=== PATIENT | male | born 1975 | race Caucasian/White ===

== ENCOUNTER 2018-10-13 15:55 | Inpatient (IN) ==
--- NOTE | 2018-10-13 20:01 | Internal Med History&Physical ---
<Sintia Vanegas M - Last Filed: 10/13/18 23:26> Date of Encounter: 10/13/18 Time of Encounter: 20:01 Internal Medicine - H&P: HPI Admitted From: Emergency Dept ([facility]) History of present illness: Mr. Dee is a 43 year old male with history of hypertension, diabetes who presents the emergency department of [facility] due to shortness of breath for the last 3 days. Patient states for the last 3 days he has had significant coughing, increasing shortness of breath and one episode of post tussive emesis 2 days prior. He notes he has had fever and chills at home. He does note intermittent chest pain only when coughing. Otherwise notes right-sided eye d rainage, worse in the last couple days but this is a chronic issue as he has had sinus surgery. He has had no sick contacts. He denies any nausea, recurrent vomiting, total pain, diarrhea, rash, headache or palpitations. He has not been hospitalized recently or on antibiotics. He states he does have sleep apnea which he does not use a CPAP at night. He also has a history of diabetes and was previously on metformin but has not had insurance coverage and therefore has not been on it for several years. he otherwise does admit to intermittently smoking methamphetamine, last use two days ago but denies any IV drug use or other illicit drugs. He is a daily smoker. In the [facility] emergency department the patient was found to have no significant leukocytosis, mild proliferative gimenez, elevated d-dimer of 641, hypercapnia on ABG, otherwise electrolytes were stable though his troponin was elevated at 0.04 and 0.06. Chest x-ray was obtained which showed no acute process. Due to elevated d-dimer patient did get CT angio chest which was not diagnostic for pulmonary embolism but did show multifocal consolidation in the upper lobes, right middle lobe and right lower lobe consistent with atypical pneumonia. He was given 3 duo nebs, 125 mg methylprednisolone, 1 g Rocephin, 500 of Zithromax, and 2 mg IV Ativan. He was able to tolerate BiPAP in the emergency room. Past Med Surg Social Fam HX - Past Medical History Medical history: COPD, diabetes, hypertension Additional medical history: sleep apnea Psychiatric history: no psych history - Past Surgical History Additional surgical history: partial tongue removal - Social History Smoking Status: Current every day smoker Smokeless Tobacco Status: No Alcohol use: none Drug use: methamphetamine Internal Medicine - H&P: Meds No Known Home Drugs 10/13/18 [History] Allergy/AdvReac Type Severity Reaction Status Date / Time No Known Allergies Allergy Verified 10/13/18 08:09 All Systems PM: A 10-system review of systems was performed and is negative for pertinent findings except as documented above in the HPI. - Constitutional Constitutional: as per HPI, chills, fever(s) - EENT Eyes: discharge, no change in vision - Cardiovascular Cardiovascular ROS IM: chest pain (intermittent, sharp on coughing), dyspnea, dyspnea on exertion, no palpitations - Respiratory Respiratory: as per HPI, dyspnea, dyspnea on exertion, wheezing - Gastrointestinal Gastrointestinal: no abdominal pain, no diarrhea, no nausea, no vomiting - Genitourinary Genitourinary ROS male: no difficulty urinating, no dysuria - Musculoskeletal Musculoskeletal ROS IM: no arthralgias, no myalgias - Integumentary Integumentary IM: no rash - Neurological Neurological ROS: no numbness, no tingling - Endocrine Endocrine IM: no polyphagia, no polyuria - Constitutional Vitals: Temp Pulse Resp BP Pulse Ox 98.5 F 97 23 143/85 97 10/13/18 19:32 10/13/18 19:32 10/13/18 19:32 10/13/18 19:32 10/13/18 19:32 Exam: General: Patient appears his stated age, seated upright and agreeable to lay back due to shortness of breath. He is on oxymask with adequate saturations, mild tachypnea but no conversational dyspnea. Neck: No JVD. Trachea midline. Neck supple. Eyes: PERRL. No scleral icterus. HENT: Normocephalic and atraumatic. Moist mucus membranes. Cardiovascular: Regular rate and rhythm. Normal S1 and S2. No murmurs appreciated. Normal capillary refill. Extremities well perfused with 2+ distal pulses bilaterally. No edema. Pulmonary: Coarse breath sounds in bilateral upper and lower land, end respiratory wheezing. Mild tachypnea. Speaks in full sentences. Abdomen: Soft, nondistended, and tontender. No bruits or masses. No guarding. Neuro: Alert and oriented x3. No slurred speech. No focal deficits noted. Skin: No rashes noted on visualized skin. Musculoskeletal: No bony abnormalities visualized. Moves all extremities. Psych: Normal mood. Pleasant. Makes appropriate eye contact. - Assessment and Plan (1) Acute respiratory failure with hypoxia and hypercapnia Current Visit: Yes Status: Acute Assessment and plan: * Unclear etiology at this point but most likely source infectious versus chemical pneumonitis from recent methamphetamine use * Does have some element of upper respiratory stridor, therefore given racemic epi with significant improvement * Will continue with BiPAP overnight and recheck ABG as his respiratory acidosis and hypercarbia worsened in the interim from [facility] ED when he was on BiPAP * We will repeat ABG after resuming BiPAP * Will monitor closely for signs of acute decompensation to avoid intubation Code(s): J96.01 - Acute respiratory failure with hypoxia; J96.02 - Acute respiratory failure with hypercapnia (2) Bilateral pneumonia Current Visit: Yes Status: Acute Assessment and plan: * Patient is initiated on Rocephin and Zithromax in the emergency room, will continue coverage for community-acquired pneumonia with Levaquin 750mg IV * Lactate was not elevated * Blood cultures drawn a [facility] and pending, will send for sputum culture if adequate specimen given * Negative influenza * On my exam the patient is on 3 L oxygen mask, will place the patient on CPAP overnight for ANDREI and respiratory support * We will repeat duonebs here, scheduled every 4h with alternating albuterol every 4 * Patient given 125 mg methylprednisolone in the emergency department, repeat dose given here and will continue on prednisone 60mg daily Qualifiers: Pneumonia type: due to unspecified organism Lung location: upper lobe of lung Qualified Code(s): J18.1 - Lobar pneumonia, unspecified organism Code(s): J18.9 - Pneumonia, unspecified organism (3) ANDREI (obstructive sleep apnea) Current Visit: Yes Status: Acute Assessment and plan: * Previously does, not utilizing CPAP at home * We will put the patient on CPAP here (4) Elevated troponin Current Visit: Yes Status: Acute Assessment and plan: * Initial troponin 0.04, elevated to 0.06, will repeat * At this point patient has no complaints of chest pain Code(s): R74.8 - Abnormal levels of other serum enzymes (5) Diabetes mellitus Current Visit: Yes Status: Acute Assessment and plan: * Per history appears previously on metformin * On BMP had blood glucose 171, no anion gap or concern for DKA at this time * SS insulin, will keep NPO at this time until respiratory status improves Qualifiers: Diabetes mellitus type: type 2 Diabetes mellitus shelter insulin use: without terminal gauger use Diabetes mellitus complication status: without complication Qualified Code(s): E11.9 - Type 2 diabetes mellitus without complications (6) Methamphetamine abuse Current Visit: Yes Status: Acute Assessment and plan: * Patient denied daily user or has any history of IV drug abuse, at this point no clinical stigmata of endocarditis * Given stridor concern for upper airway reaction from inhaled methamphetamine abuse with combination pneumonia, significant improvement with racemic epinephrine Code(s): F15.10 - Other stimulant abuse, uncomplicated (7) DVT prophylaxis Current Visit: Yes Status: Acute Assessment and plan: * Heparin subcutaneous every 12 - Time Spent With Patient Total time spent is greater than 50% in coordination of care (as documented) at patient's floor/unit and/or counseling patient: <Rogelio Sanchez - Last Filed: 10/13/18 23:57> Date of Encounter: 10/13/18 Time of Encounter: 20:55 - Constitutional Constitutional: chills, fever(s), no night sweats - EENT Nose, mouth and throat: no nasal congestion, no sinus pressure, no sore throat - Cardiovascular Cardiovascular ROS IM: chest pain, dyspnea, dyspnea on exertion - Respiratory Respiratory: cough, dyspnea, chest congestion, pain with cough - Gastrointestinal Gastrointestinal: no abdominal pain, no diarrhea, no vomiting - Genitourinary Genitourinary ROS male: no dysuria, no flank pain, no hematuria - Musculoskeletal Musculoskeletal ROS IM: no arthralgias, no back pain - Integumentary Integumentary IM: no rash, no jaundice - Neurological Neurological ROS: no dizziness, no focal weakness, no frequent falls, no headache(s) - Psychiatric Psychiatric: no anxiety, no depression - Endocrine Endocrine IM: no polydipsia, no polyphagia, no polyuria - Allergic/Immunologic Allergic/Immunologic: wheezing, no tongue swelling, no throat swelling, no GI upset with certain foods - Constitutional Vitals: Temp Pulse Resp BP Pulse Ox 98.5 F 97 22 143/85 100 10/13/18 19:32 10/13/18 19:32 10/13/18 21:25 10/13/18 19:32 10/13/18 21:25 General appearance: Present: cooperative, mild distress, A&O X 3, pleasant, answers questions appropriately Exam: mild to moderate respiratory distress - Head Head exam: Present: atraumatic, normal inspection - Eye Eye exam: Present: EOMI, PERRL. Absent: scleral icterus Pupils: Present: normal accommodation - ENT ENT exam: Present: mucous membranes dry, normal exam, normal oropharynx - Neck Neck exam general surgery: Present: full ROM, supple, trachea midline. Absent: lymphadenopathy, tenderness, nuchal rigidity, thyromegaly - Respiratory Respiratory exam: Present: accessory muscle use, prolonged expiratory phase, respiratory distress, rhonchi, stridor (much improved after racemic epinephrine neb), wheezes, tachypnea. Absent: chest wall tenderness, CTAB - Cardiovascular Cardiovascular exam: Present: distant heart sounds, RRR, +S1, +S2. Absent: diastolic murmur, systolic murmur - GI/Abdominal GI/Abdominal exam: Present: normal bowel sounds, soft. Absent: guarding, hepatomegaly, mass, rebound, splenomegaly, tenderness - Extremities Exam Extremities exam: Present: full ROM, warm, radial pulses palpable and symmetrical. Absent: calf tenderness, pedal edema, tenderness - Back Exam Back exam: Absent: CVA tenderness (L), CVA tenderness (R) - Neurological Exam Neurological exam: Present: alert, CN II-XII intact, oriented X3, no focal deficits, strengths equal and symetr throughout - Psychiatric Psychiatric exam: Present: normal affect, normal mood - Skin Skin exam: Present: dry, intact, warm. Absent: petechiae, rash Internal Med - H&P Results - Labs Labs: Cardiac Enzymes 10/13/18 Range/Units 21:23 Troponin I 0.03 (< 0.04) ng/mL - ABG Interpretation Interpretation: ABG interpreted by me ABG results: 10/13/18 21:19 ABG pH 7.29 L ABG pCO2 65 H ABG pO2 83 L ABG HCO3 31 H ABG Total CO2 33 H ABG O2 Saturation 94 L ABG Base Excess 2 Interpretation: respiratory acidosis - EKG Data -: EKG Interpreted by Myself - EKG Data Prior EKG available for review: no EKG comments: 10/13/18 23:43 SInus tachycardia; PVC's - Diagnostic Studies CT scan - chest Status: image reviewed by me (multi-focal airspace disease; indeterminate for PE) - Time Spent With Patient Total time spent is greater than 50% in coordination of care (as documented) at patient's floor/unit and/or counseling patient: - Attending Attestation I discussed the patient PALA, past medical history, review of systems, imaging data, lab data, and exam findings with Dr. Vanegas. I then saw and examined patient independently as well. Upon my assessment of the patient, he was in moderate respiratory distress, stridorous, and exhibited some increased work of breathing. He was alert and oriented but working hard to breathe. He had significant stridor on auscultation of his neck. I ordered stat racemic epinephrine aerosol, stat ABG, and then I reassessed him shortly thereafter. His stridor improved dramatically after the epinephrine aerosol. He confirmed worsening of his respiratory acidosis. I asked him about any illicit drug use or abuse, and he denied. However, per Dr. Vanegas, he confirmed to her that he did use methamphetamine recently. I viewed his CT imaging findings and note that he does have some atypical nodular airspace disease. This could be infectious, could be inhalant injury from methamphetamine abuse, and/or inflammatory. As such, we will keep him on steroids, aerosols, oxygen, and antibiotics. His CTA was indeterminate for PE. We will keep him on heparin drip and repeat his CTA in 24 hours to rule out PE. Meanwhile, we will trend troponins and EKGs. We will also order an echo for the morning. Other than my comments above and documented exam findings, I agree with Dr. Vanegas's assessment and plan.
[2018-10-13] MEDS ORDERED: Acetaminophen 325 MG TABLET PO PRN (20:32)
[2018-10-13] MEDS ORDERED: Naloxone 0.4 MG/ML INJ IVP PRN (20:32)
[2018-10-13] MEDS ORDERED: Ondansetron ODT 4 MG TAB.RAPDIS SL PRN (20:32)
[2018-10-13] MEDS ORDERED: *HR* LORazepam 2 MG/ML VIAL IVP PRN (20:42)
[2018-10-13] MEDS ORDERED: Dextrose Gel 15 GM/37.5 ML TUBE PO PRN ×2 (20:46)
[2018-10-13] MEDS ORDERED: D5% in Water 1,000 ML IVC PRN (20:46)
[2018-10-13] MEDS ORDERED: *HR* Dextrose 50 % in Water (Syg) 50 ML SYRINGE IVP PRN (20:46)
[2018-10-13] MEDS ORDERED: Insulin LISPRO 300 UNITS/3 ML VIAL SQ SCH (21:00)
[2018-10-13] MEDS ORDERED: methylPREDNISolone 125 MG/2 ML VIAL IVP ONE (21:01)
[2018-10-13] MEDS ORDERED: Racepinephrine Neb 0.5 ML VIAL IH ONE (21:01)
[2018-10-13] MEDS ORDERED: Ipratropium/Albuterol Neb 3 ML IH ONE (21:12)
[2018-10-13] MEDS ORDERED: Ipratropium/Albuterol Neb 3 ML ONE (21:21)
[2018-10-13 21:25] LABS: ABG Base Excess 2 mEq/L (-2 to 3); ABG HCO3 31 mEq/L (21-27); ABG Oxygen Saturation 94 % (95-98); ABG PCO2 65 mmHg (35-45); ABG PH 7.29 pH Units (7.32-7.45); ABG PO2 83 mmHg (85-104); ABG TCO2 33 mEq/L (20-26)
[2018-10-13] MEDS: Ipratropium/Albuterol Neb 3 ML IH SCH (21:29)
[2018-10-13] MEDS ORDERED: Levalbuterol Neb 1.25 MG/3 ML IH PRN (22:24)
[2018-10-13] MEDS ORDERED: Racepinephrine Neb 0.5 ML VIAL IH PRN (23:36)
[2018-10-13] MEDS ORDERED: *HR* Heparin 5,000 UNIT/ML VIAL IVP PRN (23:47)
[2018-10-13] MEDS ORDERED: *HR* Heparin 5,000 UNIT/ML VIAL IVP ONE (23:47)
[2018-10-14] MEDS ORDERED: Racepinephrine Neb 0.5 ML VIAL IH SCH
[2018-10-14] MEDS: Ipratropium/Albuterol Neb 3 ML IH SCH ×7 (00:32→23:51)
[2018-10-14 00:46] LABS: ABG Base Excess 2 mEq/L (-2 to 3); ABG HCO3 29 mEq/L (21-27); ABG Oxygen Saturation 98 % (95-98); ABG PCO2 54 mmHg (35-45); ABG PH 7.34 pH Units (7.32-7.45); ABG PO2 118 mmHg (85-104); ABG TCO2 31 mEq/L (20-26); Blood Gas PEEP 6 cm H2O; Blood Gas Respiration Rate 8
[2018-10-14 01:42] LABS: Hematocrit 46.5 % (37.5-50.1); Hemoglobin 14.9 g/dL (12.9-16.9); Mean Corpuscular Hemoglobin 28.3 pg (28.0-33.3); Mean Corpuscular Volume 88.4 fL (83.0-100.0); Mean Platelet Volume 10.9 fL (9.4-12.4); Platelet Count 123 K/mcL (140-400); Red Blood Count 5.26 M/mcL (4.19-5.50); Red Cell Distribution Width 13.4 % (11.5-14.5)
[2018-10-14 01:59] LABS: BUN/Creatinine Ratio 19 (6-26); Blood Urea Nitrogen 14 mg/dL (6-20); Calcium 8.9 mg/dL (8.6-10.3); Carbon Dioxide 27 mEq/L (23-29); Chloride 103 mEq/L (98-107); Glucose 293 mg/dL (70-105); Osmolality,Calculated 297 (280-300); Potassium 4.1 mEq/L (3.5-5.1); Sodium 138 mEq/L (136-145); eGFR For Non-African Americans > 60 (> 60)
[2018-10-14 02:00] LABS: INR 1.1; Prothrombin Time 12.2 Seconds (9.4-12.1)
[2018-10-14] MEDS: Heparin 25,000 UNIT/250 ML D5W 25,000 UNIT/250 ML IV.SOLN IVC SCH ×3 (02:06→23:44)
[2018-10-14] MEDS: 0.9 % Sodium Chloride 1,000 ML IVC SCH ×3 (02:15→22:41)
[2018-10-14] MEDS: Insulin LISPRO 300 UNITS/3 ML VIAL SQ SCH ×5 (05:53→23:44)
[2018-10-14] MEDS ORDERED: *HR* Heparin 5,000 UNIT/ML VIAL SQ SCH (06:00)
[2018-10-14] MEDS ORDERED: Insulin LISPRO 300 UNITS/3 ML VIAL SQ SCH (07:30)
[2018-10-14] MEDS: Levofloxacin 750 MG/150 ML 750 MG/150 ML BAG IVPB SCH (09:14)
[2018-10-14] MEDS: predniSONE 20 MG TABLET PO SCH (09:15)
--- NOTE | 2018-10-14 10:47 | Internal Med Progress Note ---
Hospitalist Progress Note - Encounter Date of Encounter: 10/14/18 Time of Encounter: 10:47 - Subjective Interval History: Patient seen and examined this morning at bedside. No acute overnight events. Breathing significantly improved. Denies any chest pain. Has some raspy voice after he had coughing for a couple days. Uses methamphetamine every few days. Denies any IV drug use. - Exam Vitals: Temp Pulse Resp BP Pulse Ox 97.4 F L 76 19 126/76 100 10/14/18 07:36 10/14/18 07:36 10/14/18 07:36 10/14/18 07:36 10/14/18 07:36 Exam: General: In mild respiratory distress. Respiratory exam: mild accessory muscle use. Diffuse wheezing b/l Cardiovascular exam: tachycardic, +S1, +S2. no murmur, gallop, rubs. GI/Abdominal exam: obese, Non-tender, Non-distended, normal bowel sounds, soft, no peritoneal signs. Extremities exam: no pedal edema, pulses palpable in b/l lower extremities. no calf tenderness Neurological exam: CN II-XII intact, AO X3, no focal deficits. Skin exam: No skin rash - Summary of Assessment and Plan Summary of Assessment and Plan: Acute respiratory failure with hypoxia and hypercapnia - CTA was non diagnostic for PE but showed multifocal conolidation in RML, UL and RLL. - Patient is also a smoker and has COPD - ABG improved. c/w BIPAP, duonebs, steroid and levaquin. - chemical pneumonitis possible from recent methamphetamine use. Had stridor and was given racemic epi with significant improvement - lactate negative. f/u Blood cultures and sputum culture - send RIP. ANDREI - c/w BiPAP at night - Was not using CPAP at home Elevated troponin - Initial troponin 0.04, elevated to 0.06, repeats being negative - started on heparin drip - EKG with Lt atrial enlargement, PVC and sinus tachycardia. Denies chest pain at any point. - c/w heparin drip and f/u ECHO. May repeat CTA tomorrow. Diabetes mellitus -c/w SS insulin and accuchecks methamphetamine and nitcotine abuse - discussed cessation and risk of continued use - f/u ECHO for possible signs of endocarditis. No signs clinically of endocarditis. - nicotine patch DVT prophylaxis - Heparin subcutaneous - Time Spent with Patient Total time spent is greater than 50% in coordination of care (as documented) at patient's floor/unit and/or counseling patient: Internal Medicine: Result - Labs CBC & Chem 7: 10/14/18 01:13 10/14/18 01:13 Labs: Short CBC 10/14/18 Range/Units 01:13 WBC 5.3 (4.3-11.1) K/mcL Hgb 14.9 (12.9-16.9) g/dL Hct 46.5 (37.5-50.1) % Plt Count 123 L (140-400) K/mcL BMP 10/14/18 01:13 Sodium 138 Potassium 4.1 Chloride 103 Carbon Dioxide 27 BUN 14 Creatinine 0.72 Glucose 293 H Calcium 8.9 Cardiac Enzymes 10/13/18 10/14/18 10/14/18 Range/Units 21:23 01:13 05:57 Troponin I 0.03 0.03 0.03 (< 0.04) ng/mL - ABG Interpretation ABG results: ABG ABG pH 7.34 pH Units (7.32-7.45) 10/14/18 00:36 ABG pCO2 54 mmHg (35-45) H 10/14/18 00:36 ABG pO2 118 mmHg (85-104) H 10/14/18 00:36 ABG O2 Saturation 98 % (95-98) 10/14/18 00:36 PT/INR, D-dimer PT 12.2 Seconds (9.4-12.1) H 10/14/18 01:13 Consult Discharge Plan - Plan Referrals: NONE,PCP [Primary Care Provider] -
[2018-10-14] MEDS: Nicotine 14 MG PATCH.TD24 TD SCH (12:03)
[2018-10-14 13:35] LABS: Estimated Average Glucose 157 mg/dl; Hemoglobin A1C 7.1 %
[2018-10-14 14:40] LABS: Adenovirus DETECTED (Not Detect); Bordetella Pertussis Not Detected (Not Detect); Chlamydophila pneumoniae Not Detected (Not Detect); Coronavirus 229E Not Detected (Not Detect); Coronavirus HKU1 Not Detected (Not Detect); Coronavirus NL63 Not Detected (Not Detect); Coronavirus OC43 Not Detected (Not Detect); Human Metapneumovirus Not Detected (Not Detect); Human Rhinovirus/Enterovirus Not Detected (Not Detect); Influenza A Subtype 2009 H1 Not Detected (Not Detect); Influenza A Untypeable Not Detected (Not Detect); Influenza B Not Detected (Not Detect); Mycoplasma pneumoniae Not Detected (Not Detect); Parainfluenza Virus 1 Not Detected (Not Detect); Parainfluenza Virus 2 Not Detected (Not Detect); Parainfluenza Virus 3 Not Detected (Not Detect); Parainfluenza Virus 4 Not Detected (Not Detect); Respiratory Syncytial Virus Not Detected (Not Detect)
[2018-10-14] MEDS: *HR* LORazepam 2 MG/ML VIAL IVP PRN (23:44)
[2018-10-15] MEDS: Ipratropium/Albuterol Neb 3 ML IH SCH ×6 (00:19→20:44)
[2018-10-15 04:33] LABS: Hematocrit 43.5 % (37.5-50.1); Hemoglobin 13.9 g/dL (12.9-16.9); Mean Corpuscular Hemoglobin 28.7 pg (28.0-33.3); Mean Corpuscular Volume 89.7 fL (83.0-100.0); Mean Platelet Volume 11.1 fL (9.4-12.4); Platelet Count 127 K/mcL (140-400); Red Blood Count 4.85 M/mcL (4.19-5.50); Red Cell Distribution Width 13.6 % (11.5-14.5)
[2018-10-15 04:50] LABS: BUN/Creatinine Ratio 30 (6-26); Blood Urea Nitrogen 22 mg/dL (6-20); Calcium 8.8 mg/dL (8.6-10.3); Carbon Dioxide 27 mEq/L (23-29); Chloride 106 mEq/L (98-107); Glucose 252 mg/dL (70-105); Osmolality,Calculated 304 (280-300); Potassium 3.8 mEq/L (3.5-5.1); Sodium 141 mEq/L (136-145); eGFR For Non-African Americans > 60 (> 60)
[2018-10-15 05:09] LABS: Platelet Estimate Normal (Normal)
[2018-10-15 05:23] LABS: Lymphocytes # 1.6 K/mcL (0.6-4.6)
[2018-10-15] MEDS: 0.9 % Sodium Chloride 1,000 ML IVC SCH ×2 (06:19→17:11)
[2018-10-15] MEDS: Insulin LISPRO 300 UNITS/3 ML VIAL SQ SCH ×3 (06:36→17:13)
[2018-10-15] MEDS: predniSONE 20 MG TABLET PO SCH (08:32)
[2018-10-15] MEDS: Nicotine 14 MG PATCH.TD24 TD SCH (08:32)
[2018-10-15] MEDS: *HR* LORazepam 2 MG/ML VIAL IVP PRN ×2 (08:38→20:51)
[2018-10-15] MEDS: Levofloxacin 750 MG/150 ML 750 MG/150 ML BAG IVPB SCH (10:32)
--- NOTE | 2018-10-15 10:46 | Internal Med Progress Note ---
Hospitalist Progress Note - Encounter Date of Encounter: 10/15/18 Time of Encounter: 10:46 - Subjective Interval History: Patient seen and examined this morning at bedside. Patient needed on BiPAP overnight due to significant shortness of breath. Stable on BiPAP this morning with mild respiratory distress. Denies any chest pain. Remains afebrile. - Exam Vitals: Temp Pulse Resp BP Pulse Ox 98 F 74 24 138/85 98 10/15/18 03:46 10/15/18 05:00 10/15/18 08:46 10/15/18 05:00 10/15/18 08:46 Exam: General: In mild respiratory distress. On bipapa Respiratory exam: mild accessory muscle use. Diffuse wheezing b/l Cardiovascular exam: RRR, +S1, +S2. no murmur, gallop, rubs. GI/Abdominal exam: obese, Non-tender, Non-distended, normal bowel sounds, soft, no peritoneal signs. Extremities exam: no pedal edema, pulses palpable in b/l lower extremities. no calf tenderness Neurological exam: CN II-XII intact, AO X3, no focal deficits. Skin exam: No skin rash - Summary of Assessment and Plan Summary of Assessment and Plan: Acute respiratory failure with hypoxia and hypercapnia - CTA was non diagnostic for PE but showed multifocal conolidation in RML, UL and RLL. - Patient is also a smoker and has COPD - ABG improved yesterday however had to put back on BIPAP due to shortness of breath. c/w duonebs, steroid and levaquin. - chemical pneumonitis also possible from recent methamphetamine use. RIP positive for adenovirus. - lactate negative. f/u Blood cultures and sputum culture possible MRSA bacteremia - 1/2 culture positve for GPC with MecA gene - started on vancomycin. could be contaminant. f/u MRSA screen, repeat Blood cultures. Will obtain ID consult tomorrow COPD exacerbation - likely exacerbation from adenovirus - start IV steroids, c/w breathing treatments, levaquin ANDREI - c/w BiPAP at night - Was not using CPAP at home Elevated troponin - Initial troponin 0.04, elevated to 0.06, repeats being negative - started on heparin drip - EKG with Lt atrial enlargement, PVC and sinus tachycardia. Denies chest pain at any point. - c/w heparin drip and f/u ECHO. Repeat CTA when able to lye flat. Diabetes mellitus -c/w SS insulin and accuchecks methamphetamine and nitcotine abuse - discussed cessation and risk of continued use. Denies any IVDU - f/u ECHO for possible signs of endocarditis. No signs of endocarditis, however 1/2 Blood culture positive for likely MRSA - nicotine patch. DVT prophylaxis - Heparin subcutaneous - Time Spent with Patient Total time spent is greater than 50% in coordination of care (as documented) at patient's floor/unit and/or counseling patient: Internal Medicine: Result - Labs CBC & Chem 7: 10/15/18 03:40 10/15/18 03:40 Labs: Short CBC 10/15/18 Range/Units 03:40 WBC 6.6 (4.3-11.1) K/mcL Hgb 13.9 (12.9-16.9) g/dL Hct 43.5 (37.5-50.1) % Plt Count 127 L (140-400) K/mcL Neutrophils # 4.0 (1.6-8.9) K/mcL BMP 10/15/18 03:40 Sodium 141 Potassium 3.8 Chloride 106 Carbon Dioxide 27 BUN 22 H Creatinine 0.73 Glucose 252 H Calcium 8.8 - ABG Interpretation ABG results: ABG ABG pH 7.34 pH Units (7.32-7.45) 10/14/18 00:36 ABG pCO2 54 mmHg (35-45) H 10/14/18 00:36 ABG pO2 118 mmHg (85-104) H 10/14/18 00:36 ABG O2 Saturation 98 % (95-98) 10/14/18 00:36 PT/INR, D-dimer PT 12.2 Seconds (9.4-12.1) H 10/14/18 01:13 Consult Discharge Plan - Plan Referrals: NONE,PCP [Primary Care Provider] -
[2018-10-15] MEDS: Heparin 25,000 UNIT/250 ML D5W 25,000 UNIT/250 ML IV.SOLN IVC SCH (11:19)
[2018-10-15] MEDS: methylPREDNISolone 125 MG/2 ML VIAL IVP SCH ×2 (16:54→23:16)
[2018-10-15] MEDS: *HR* Heparin 5,000 UNIT/ML VIAL IVP PRN (23:16)
[2018-10-16] MEDS: Ipratropium/Albuterol Neb 3 ML IH SCH ×7 (00:10→23:24)
[2018-10-16] MEDS: Insulin LISPRO 300 UNITS/3 ML VIAL SQ SCH ×5 (00:15→20:51)
[2018-10-16] MEDS: Heparin 25,000 UNIT/250 ML D5W 25,000 UNIT/250 ML IV.SOLN IVC SCH (03:19)
[2018-10-16] MEDS: 0.9 % Sodium Chloride 1,000 ML IVC SCH ×3 (03:20→23:25)
[2018-10-16 05:24] LABS: Hematocrit 42.7 % (37.5-50.1); Hemoglobin 13.7 g/dL (12.9-16.9); Mean Corpuscular HGB Conc 32.1 g/dL (31.6-35.5); Mean Corpuscular Hemoglobin 28.7 pg (28.0-33.3); Mean Corpuscular Volume 89.5 fL (83.0-100.0); Mean Platelet Volume 10.4 fL (9.4-12.4); Monocytes # 0.2 K/mcL (0.0-1.3); Platelet Count 117 K/mcL (140-400); Red Blood Count 4.77 M/mcL (4.19-5.50); Red Cell Distribution Width 13.4 % (11.5-14.5)
[2018-10-16 05:38] LABS: BUN/Creatinine Ratio 25 (6-26); Blood Urea Nitrogen 17 mg/dL (6-20); Calcium 8.8 mg/dL (8.6-10.3); Carbon Dioxide 29 mEq/L (23-29); Chloride 106 mEq/L (98-107); Glucose 297 mg/dL (70-105); Osmolality,Calculated 305 (280-300); Potassium 4.3 mEq/L (3.5-5.1); Sodium 141 mEq/L (136-145); eGFR For Non-African Americans > 60 (> 60)
[2018-10-16 05:54] LABS: Platelet Estimate Slight Decrease (Normal)
[2018-10-16 05:57] LABS: Lymphocytes # 0.5 K/mcL (0.6-4.6); Neutrophils # 2.3 K/mcL (1.6-8.9)
--- NOTE | 2018-10-16 08:13 | Internal Med Progress Note ---
Hospitalist Progress Note - Encounter Date of Encounter: 10/16/18 Time of Encounter: 08:13 - Subjective Interval History: Patient seen and examined this morning at bedside. No acute events. Breathing improved. Off BiPAP this morning. Appears slightly tachypneic but much better than yesterday. Afebrile. No diarrhea or urinary difficulties. - Exam Vitals: Temp Pulse Resp BP Pulse Ox 97.4 F L 98 22 157/105 92 10/16/18 08:06 10/16/18 08:06 10/16/18 08:06 10/16/18 08:06 10/16/18 08:06 Exam: General: In mild respiratory distress. On NC Respiratory exam: mild accessory muscle use. Diffuse wheezing b/l Cardiovascular exam: RRR, +S1, +S2. no murmur, gallop, rubs. GI/Abdominal exam: obese, Non-tender, Non-distended, no peritoneal signs. Extremities exam: no pedal edema, pulses palpable in b/l lower extremities. no calf tenderness Neurological exam: CN II-XII intact, AO X3, no focal deficits. Skin exam: No skin rash - Summary of Assessment and Plan Summary of Assessment and Plan: Acute respiratory failure with hypoxia and hypercapnia - CTA was non diagnostic for PE but showed multifocal conolidation in RML, UL and RLL. - RIP positive for adenovirus. - Patient is also a smoker and has COPD - c/w duonebs, steroid and levaquin. - chemical pneumonitis also possible from recent methamphetamine use. - lactate negative. Positive blood culture - 1/2 culture positive for staph hominis. Likely can dc vancomycin. MRSA screen negative after 1 day of antibiotic. ID recommendation appreciated COPD exacerbation - likely exacerbation from adenovirus - start IV steroids, c/w breathing treatments, levaquin SIRS - has 3 criteria. but does not appear septic. ANDREI - c/w BiPAP at night - Was not using CPAP at home Elevated troponin - Initial troponin 0.04, elevated to 0.06, repeats being negative - was on heparin drip - EKG with Lt atrial enlargement, PVC and sinus tachycardia. Denies chest pain at any point. - c/w heparin drip and f/u ECHO. Repeat CTA. Will stop heparin if negative Diabetes mellitus -c/w SS insulin and accuchecks methamphetamine and nitcotine abuse - discussed cessation and risk of continued use. Denies any IVDU - f/u ECHO for possible signs of endocarditis. - nicotine patch. DVT prophylaxis - Heparin subcutaneous - Time Spent with Patient Total time spent is greater than 50% in coordination of care (as documented) at patient's floor/unit and/or counseling patient: Internal Medicine: Result - Labs CBC & Chem 7: 10/16/18 05:03 10/16/18 05:03 Labs: Short CBC 10/16/18 Range/Units 05:03 WBC 3.0 L D (4.3-11.1) K/mcL Hgb 13.7 (12.9-16.9) g/dL Hct 42.7 (37.5-50.1) % Plt Count 117 L (140-400) K/mcL Neutrophils # 2.3 (1.6-8.9) K/mcL BMP 10/16/18 05:03 Sodium 141 Potassium 4.3 Chloride 106 Carbon Dioxide 29 BUN 17 Creatinine 0.67 L Glucose 297 H Calcium 8.8 - ABG Interpretation ABG results: ABG ABG pH 7.34 pH Units (7.32-7.45) 10/14/18 00:36 ABG pCO2 54 mmHg (35-45) H 10/14/18 00:36 ABG pO2 118 mmHg (85-104) H 10/14/18 00:36 ABG O2 Saturation 98 % (95-98) 10/14/18 00:36 PT/INR, D-dimer PT 12.2 Seconds (9.4-12.1) H 10/14/18 01:13 Consult Discharge Plan - Plan Referrals: Liza Solis CNP [Advanced Practice Nurse] - 10/25/18 1:30 pm (Please take the new patient packet with you to your doctors office filled out/If you do not receive this packet in the mail please arrive 30 minutes early to fill out paper work. If your receive this packet in the mail show up 15 minutes early to your appointment. Please take with you to your appointment Picture ID, Insurance Cards, list of all medications including over the counter meds. This office does not give out controlled medication. If you are not able to make this follow up appointment please call [phone] 24 hours prior to your appointment.)
[2018-10-16] MEDS: Levofloxacin 750 MG/150 ML 750 MG/150 ML BAG IVPB SCH (08:23)
[2018-10-16] MEDS: methylPREDNISolone 125 MG/2 ML VIAL IVP SCH ×3 (08:24→23:26)
[2018-10-16] MEDS: Nicotine 14 MG PATCH.TD24 TD SCH (08:25)
[2018-10-16] MEDS ORDERED: Aminoglycoside Consult 1 EACH MC ONE (11:09)
[2018-10-16] MEDS: *HR* Heparin 5,000 UNIT/ML VIAL IVP PRN (11:52)
[2018-10-16] MEDS ORDERED: Isovue-370 500 ML BOTTLE IVP ONE (12:07)
[2018-10-16] MEDS: Nicotine 21 MG PATCH.TD24 TD SCH (15:21)
[2018-10-16] MEDS ORDERED: *HR* Labetalol 20 MG/4 ML SYRINGE IVP ONE (18:16)
[2018-10-16] MEDS ORDERED: Perflutren Lipid Microsphere 1.3 ML in 0.9 % Sodium Chloride 8.7 ML IVP ONE (20:42)
[2018-10-16] MEDS: *HR* Heparin 5,000 UNIT/ML VIAL SQ SCH (20:50)
[2018-10-17] MEDS: Ipratropium/Albuterol Neb 3 ML IH SCH ×6 (04:55→23:45)
[2018-10-17] MEDS: niCARdipine 40 MG/200 ML MLS IVC SCH ×3 (05:18→22:33)
[2018-10-17] MEDS: *HR* Heparin 5,000 UNIT/ML VIAL SQ SCH ×3 (05:20→22:09)
[2018-10-17] MEDS: Insulin LISPRO 300 UNITS/3 ML VIAL SQ SCH ×3 (09:19→17:30)
[2018-10-17] MEDS: methylPREDNISolone 125 MG/2 ML VIAL IVP SCH (09:20)
[2018-10-17] MEDS: Nicotine 21 MG PATCH.TD24 TD SCH (09:21)
--- NOTE | 2018-10-17 09:50 | Infectious Disease Progress No ---
ID Progress Note Date of Encounter: 10/17/18 Time of Encounter: 09:15 - Subjective Subjective: Patient seen and examined at bed side. He is resting comfortably on 2L NC. no acute distress. He still has a significantly hoarse voice, but slightly improved from the previous day. Tachycardic and hypertensive overnight, but afebrile. - Objective CBC & Chem 7: 10/16/18 05:03 10/16/18 05:03 - Exam Vitals: Temp Pulse Resp BP Pulse Ox 97.9 F 115 24 140/84 96 10/17/18 08:00 10/17/18 08:00 10/17/18 08:00 10/17/18 09:00 10/17/18 08:00 Exam: General: No acute distress HEENT: Pupils are equal and round, EOMI, mucosa moist, external ears and nares patent. Hoarse oice Neck: no jvd, trachea midline Respiratory: poor air flow. diffuse expiratory wheezes and ronchorous breath sounds bilaterally Cardiovascular: tachycardic, regular rhythm. no murmurs Abdomen: obese, soft, nontender, no guarding or rigidity Extremities: no cyanosis, clubbing or edema Neurological: no obvious focal neurological deficits - Assessment and Plan (1) Viral pneumonia Status: Acute -43-year-old male presented to outside hospital with shortness of breath and respiratory failure -CTA at outside hospital showed multifocal consolidations in the bilateral upper lobes and right middle and lower lobes. -Patient received 1 g Rocephin 500 mg azithromycin and transferred to [facility] -Upon arrival patient received racemic epinephrine as he had significant inspiratory stridor -He was started on BiPAP support and Levaquin -Blood cultures drawn at outside hospital grew staph hominis 1 -MRSA swab negative -Respiratory infection panel positive for adenovirus, negative for atypicals such as chlamydia and mycoplasma -Influenza swab and strep and Legionella antigens negative -Urinalysis showed nitrites and blood, however urine culture was negative -Repeat blood cultures pending -Sputum culture showed normal upper respiratory tract falguni Plan: -Suspect viral pneumonia in the setting of adenovirus infection -ronchorous breath sounds bilaterally -4/5: BC growing staph hominis x 1, likely contaminant -/6: legionella and strep antigens negative -4/6: chlamydia pneumonia and mycoplasma pneumoniae negative. Therefore less likely an atypical bacterial pneumonia -4/6: No growth on urine culture -10/15: Repeat BC pending, NGTD -vancomycin and levaquin discontinued -Will check HIV and hepatitis panel to assess for underlying immunodeficiency and due to high risk behavior -Fungal serology has been ordered to search for aspergillus, blastomyces, cryptosporidium, fungitell, and histoplasma SNOMED Code(s): 35793063 (2) Acute respiratory failure with hypoxia and hypercapnia Status: Acute -Acute respiratory failure in the setting of viral pneumonia -Patient continues to require supplemental oxygen and BiPAP support -Respiratory examination reveals diffuse expiratory wheezes and ronchi -Patient is an active smoker and may have a component COPD exacerbation along with viral pneumonia SNOMED Code(s): 913356000 (3) Drug abuse Status: Acute -Hx of methamphetamine use -UDS positive for amphetamines -Will obtain HIV and hepatitis panel SNOMED Code(s): 22080143 (4) Coagulase negative Staphylococcus bacteremia Status: Acute -1 set of blood cultures positive for coagulase negative staph hominis -Likely contaminant -Repeat blood cultures NGTD -antibiotics stopped SNOMED Code(s): 585940234199, [id number] Consult Discharge Plan - Plan Referrals: Liza Solis CNP [Primary Care Provider] - 10/25/18 1:30 pm (Please take the new patient packet with you to your doctors office filled out/If you do not receive this packet in the mail please arrive 30 minutes early to fill out paper work. If your receive this packet in the mail show up 15 minutes early to your appointment. Please take with you to your appointment Picture ID, Insurance Cards, list of all medications including over the counter meds. This office does not give out controlled medication. If you are not able to make this follow up appointment please call [phone] 24 hours prior to your appointment.) - Attending Attestation I examined this patient and my medical decision-making was reviewed with the Resident Physician. I agree with the documented findings, disposition and treatment plan as described except to the extent set forth below. Patient seen and examined. Clinically doing much better. Assessment and plan: 1.Viral pneumonia 2.COPD 3.Gram-positive bacteremia 1/2 sets positive for coag-negative staph likely contaminant 4.Morbid obesity 5.New Onset diabetes mellitus type 2 6.Recreational drug use including amphetamine 7.Tobacco abuse Recommendation at this point continue to observe off antibiotics. Await fungal serologies to return.
--- NOTE | 2018-10-17 10:28 | Internal Med Progress Note ---
Hospitalist Progress Note - Encounter Date of Encounter: 10/17/18 Time of Encounter: 08:37 - Subjective Interval History: Patient seen and examined this morning in the center. No acute overnight events. Denies new complaint. Still the short of breath however significantly improved. Remains afebrile. Was in BiPAP overnight. - Exam Vitals: Temp Pulse Resp BP Pulse Ox 97.9 F 115 24 140/84 96 10/17/18 08:00 10/17/18 08:00 10/17/18 08:00 10/17/18 09:00 10/17/18 08:00 Exam: General: In mild respiratory distress. On NC Respiratory exam: mild accessory muscle use. Diffuse wheezing b/l Cardiovascular exam: RRR, +S1, +S2. no murmur, gallop, rubs. GI/Abdominal exam: obese, Non-tender, Non-distended, no peritoneal signs. Extremities exam: no pedal edema, pulses palpable in b/l lower extremities. no calf tenderness Neurological exam: CN II-XII intact, AO X3, no focal deficits. Skin exam: No skin rash - Summary of Assessment and Plan Summary of Assessment and Plan: Acute respiratory failure with hypoxia and hypercapnia - Likely secondary to viral pneumonia from adenovirus and COPD exacerbation. Antibiotics stopped - c/w duonebs, steroid. steroid dose decreased - chemical pneumonitis also possible from recent methamphetamine use. Also Positive blood culture - 1/2 culture positive for staph hominis. - likely contaminant. vancomycin stopped. Appreicate ID recommendation. f/u HIV. Negative hepatitis B. workup and fungal serology. COPD exacerbation - likely exacerbation from adenovirus - start IV tapered steroids, c/w breathing treatments HTN - needed to be started on nicardipine last night due to elevated BP. No controlled and off of it. - Start lisinopril and prn iv hydralazine. ANDREI - Was not using CPAP at home - Will obtain bipap evaluation toninght for COPD and ANDREI Elevated troponin - Initial troponin 0.04, elevated to 0.06, repeats being negative. Denies chest pain at any point. EKG with Lt atrial enlargement, PVC and sinus tachycardia. - Repeat CTA still non-diagnostic for PE. DVT study negative ECHO with EF 55, Diastolic dysfunction. Normal Rt ventricular function. - Heparin stopped Diabetes mellitus -c/w SS insulin and accuchecks methamphetamine and nitcotine abuse - discussed cessation and risk of continued use. Denies any IVDU - ECHO as above - nicotine patch. DVT prophylaxis - Heparin subcutaneous - Time Spent with Patient Total time spent is greater than 50% in coordination of care (as documented) at patient's floor/unit and/or counseling patient: Internal Medicine: Result - Labs CBC & Chem 7: 10/16/18 05:03 10/16/18 05:03 - ABG Interpretation ABG results: ABG ABG pH 7.34 pH Units (7.32-7.45) 10/14/18 00:36 ABG pCO2 54 mmHg (35-45) H 10/14/18 00:36 ABG pO2 118 mmHg (85-104) H 10/14/18 00:36 ABG O2 Saturation 98 % (95-98) 10/14/18 00:36 PT/INR, D-dimer PT 12.2 Seconds (9.4-12.1) H 10/14/18 01:13 - Impressions Impressions Echocardiogram 10/16/18 05:42 Impressions: Technically sub-optimal due to body habitus. Definity echo contrast was used. LVEF 55%. LV endocardial border not well visualized for measurements of LV chamber size and wall thickness. Indeterminate diastolic function. Normal right ventricular structure and function. No valve dysfunction by Doppler. Unable to estimate RVSP due to suboptimal TR signal. Left Ventricular Wall Motion: Rest Echo Findings The mid anterior septal, mid inferior lateral, basal anterior septal and basal inferior lateral prado were not visualized. All other wall segments showed normal motion. Findings: Study Quality * Technically sub-optimal due to body habitus. ECG Findings * Sinus tachycardia. Left Ventricle * Definity echo contrast was used. * LV endocardial border not well visualized for measurements of LV chamber size and wall thickness. * Indeterminate diastolic function. * LVEF 55%. Right Ventricle * Normal right ventricular structure and function. Left Atrium * Moderately dilated left atrium. Right Atrium * Normal right atrial size. Aortic Valve * No aortic regurgitation. * No aortic stenosis. * Aortic valve not well visualized. Mitral Valve * No mitral regurgitation. * Normal mitral valve structure. * No mitral stenosis. Tricuspid Valve * Tricuspid valve not well visualized. * No tricuspid regurgitation. Pulmonic Valve * Pulmonic valve is not well visualized. * No pulmonic stenosis. * No pulmonic regurgitation. Pulmonary Artery * Pulmonary artery not well visualized. Aorta * Not well visualized. Pericardium * There is no pericardial effusion present. Interatrial Septum * No evidence of PFO by color Doppler. IVC * Normal IVC dimensions and inspiratory collapse. Chest CTA 10/16/18 13:30 IMPRESSION: 1. Examination is nondiagnostic for pulmonary emboli as there is inadequate enhancement of the pulmonary arteries 2. Persistent nodular airspace disease in the upper lobes bilaterally and the right middle and right lower lobes suggesting a multifocal pneumonia D/ / Aquiles Garcia MD / Aquiles Garcia MD Interpreting Provider: Aquiles Garcia MD Consult Discharge Plan - Plan Referrals: Liza Solis CNP [Primary Care Provider] - 10/25/18 1:30 pm (Please take the new patient packet with you to your doctors office filled out/If you do not receive this packet in the mail please arrive 30 minutes early to fill out paper work. If your receive this packet in the mail show up 15 minutes early to your appointment. Please take with you to your appointment Picture ID, Insurance C ards, list of all medications including over the counter meds. This office does not give out controlled medication. If you are not able to make this follow up appointment please call [phone] 24 hours prior to your appointment.)
[2018-10-17 11:39] LABS: Hepatitis B Surface Antibody < 3.10 mIU/mL
[2018-10-17 11:49] LABS: Hepatitis B Surface Antigen Nonreactive (Nonreactive)
[2018-10-17 12:19] LABS: Hepatitis C Virus Antibody Nonreactive (Nonreactive)
[2018-10-17 12:20] LABS: HIV-1&2 Antibody & p24 Ag Nonreactive (Nonreactive)
[2018-10-17] MEDS ORDERED: MethylPREDNISolone 40 MG/ML VIAL IVP SCH (18:00)
[2018-10-17] MEDS: predniSONE 20 MG TABLET PO SCH (18:40)
[2018-10-17] MEDS: hydrALAZINE 25 MG TABLET PO SCH ×2 (18:40→23:58)
[2018-10-17] MEDS ORDERED: Insulin LISPRO 300 UNITS/3 ML VIAL SQ SCH (21:00)
[2018-10-17] MEDS: 0.9 % Sodium Chloride 1,000 ML IVC SCH (22:35)
[2018-10-18] MEDS: Ipratropium/Albuterol Neb 3 ML IH SCH ×2 (04:26→07:27)
[2018-10-18] MEDS: niCARdipine 40 MG/200 ML MLS IVC SCH (05:51)
[2018-10-18] MEDS: *HR* Heparin 5,000 UNIT/ML VIAL SQ SCH (05:59)
[2018-10-18] MEDS ORDERED: predniSONE 20 MG TABLET PO SCH (08:00)
[2018-10-18 08:07] VITALS: BP 171/93
--- NOTE | 2018-10-18 08:46 | Infectious Disease Progress No ---
ID Progress Note Date of Encounter: 10/18/18 Time of Encounter: 09:00 - Subjective Subjective: Patient seen and examined at bedside. He has been moved out of to and is no longer oxygen dependant. His fungal serology is still pending; however, repeat blood cultures from 10/15 are still negative. Hepatitis panel and HIV were negative for infection, but Hepatitis B surface antibody was low. Patient this morning states that he feels significantly better, denies any fevers, chills, chest pain, SOB, or orthopnea overnight. Did not require bipap overnight and is saturating well on room air. - Objective CBC & Chem 7: 10/16/18 05:03 10/16/18 05:03 - Exam Vitals: Temp Pulse Resp BP Pulse Ox 98.8 F 93 17 171/93 95 10/18/18 08:04 10/18/18 08:04 10/18/18 08:04 10/18/18 08:04 10/18/18 08:04 Exam: General: No acute distress, resting comfortably in bed HEENT: Pupils are equal and round, EOMI, mucosa moist, external ears and nares patent. Neck: no jvd, trachea midline Respiratory: no respiratory distress, mild end expiratory wheezes Cardiovascular: tachycardic, regular rhythm. no murmurs Abdomen: obese, soft, nontender, no guarding or rigidity Extremities: no cyanosis, clubbing or edema Neurological: no obvious focal neurological deficits - Assessment and Plan (1) Viral pneumonia Status: Acute -43 year old admitted with SOB and respiratory failure on 10/13, Infectious disease was consulted on 10/16 for MRSA bacteremia -10/13: CT scan showed evidence for airspace disease in b/l upper lobes, and right middle and lower lobes suggesting multifocal pneumonia -10/13: Patient presented from outside hospital where 1/2 blood cultures positive for coagulase negative staph, eventually grew Staph hominis. Suspected to be contaminant. -10/14: Respiratory infectious panel only positive for adenovirus -10/14: legionella and strep antigens negative -10/14: started on vancomycin and levaquin -10/15: Repeat BC NGTD -10/17: Stopped vancomycin and levaquin as this was likely a viral pneumonia Plan: -Suspect viral pneumonia in the setting of adenovirus infection -Patient is clinically much improved, no longer bipap or oxygen dependant. -Fungal serology pending -Patient left AMA on 10/18/2018 SNOMED Code(s): 79278694 (2) Acute respiratory failure with hypoxia and hypercapnia Status: Acute -Presented with acute respiratory failure in the setting of viral pneumonia -Patient is no longer oxygen or bipap dependent SNOMED Code(s): 967014393 (3) Drug abuse Status: Acute -Hx of methamphetamine use -UDS positive for amphetamines -Hepatitis panel negative for infection, but hepatitis B surface antibody was low -HIV negative SNOMED Code(s): 96554007 (4) Coagulase negative Staphylococcus bacteremia Status: Acute -1 set of blood cultures positive for coagulase negative staph hominis -Likely contaminant -Repeat blood cultures NGTD -antibiotics stopped SNOMED Code(s): 518622460367, [id number] Consult Discharge Plan - Plan Referrals: Liza Solis CNP [Primary Care Provider] - 10/25/18 1:30 pm (Please take the new patient packet with you to your doctors office filled out/If you do not receive this packet in the mail please arrive 30 minutes early to fill out paper work. If your receive this packet in the mail show up 15 minutes early to your appointment. Please take with you to your appointment Picture ID, Insurance Cards, list of all medications including over the counter meds. This office does not give out controlled medication. If you are not able to make this follow up appointment please call [phone] 24 hours prior to your appointment.)
[2018-10-18] MEDS ORDERED: hydrALAZINE 25 MG TABLET PO SCH ×2 (09:00→18:13)
[2018-10-18] MEDS ORDERED: amLODIPine 5 MG TABLET PO SCH (10:00)
[2018-10-18] MEDS: predniSONE 20 MG TABLET PO SCH (10:20)
[2018-10-18] MEDS: Nicotine 21 MG PATCH.TD24 TD SCH (10:21)
[2018-10-18] MEDS: Insulin LISPRO 300 UNITS/3 ML VIAL SQ SCH (10:21)
--- NOTE | 2018-10-18 19:33 | Discharge Summary ---
Orders not resulted at time of discharge: Pending orders 10/15/18 13:00 Culture,Blood [BC] Routine 10/17/18 06:24 Histoplasma galactomannan,Ur Routine 10/17/18 06:28 Cryptosporidium Ag EIA,Fecal Routine 10/17/18 07:48 Fungitell (1,3)-ninm-B-Sxpsfb Routine 10/17/18 07:51 Aspergillus galactomannan Ag Routine Blastomyces Ab by EIA, rflx ID Routine Hepatitis B Core Ab Total AM 0400 Histoplasma Antigen Routine Date of Encounter: 10/18/18 Time of Encounter: 13:00 - Discharge Diagnosis (1) Hypertension Priority: Primary Status: Acute Qualifiers: Hypertension type: essential hypertension Qualified Code(s): I10 - Essential (primary) hypertension (2) Acute respiratory failure with hypoxia and hypercapnia Priority: Primary Status: Acute (3) Coagulase negative Staphylococcus bacteremia Priority: Primary Status: Acute (4) Elevated troponin Priority: Primary Status: Acute (5) Viral pneumonia Priority: Primary Status: Acute Hospital course: Mr. Dee is a 43 year old male patient got admitted for acute respiratory failure secondary to viral pneumonia, COPD exacerbation and also had a staph or glaze bacteremia. ID was consulted. Troponin was high therefore initially heparin drip was started but eventually is stopped considering demand ischemia. Upon admission patient had hypertensive urgency and antihypertensive medicine was restarted. Today patient again has high blood pressure therefore planned to readjust the medicine such as restarting amlodipine, increasing lisinopril along with hydralazine when necessary. I discussed the plan with patient about blood pressure management and keeping him today while existing the blood pre ssure medicine. Patient left AMA once I left the floor. Nurse informed me by phone but he already left before I reached to floor. - Time Spent with Patient Total time spent providing and/or coordinating discharge services: - Discharge Medications Prescriptions: No Action No Known Home Drugs 1 each .ROUTE AD each Home Medications: No Known Home Drugs 10/13/18 [History] Allergies/Adverse Reactions: Allergy/AdvReac Type Severity Reaction Status Date / Time No Known Allergies Allergy Verified 10/15/18 14:00 Date of admission: 10/13/18 17:57 Primary care physician: Liza Solis CNP Consults: 10/16/18 07:21 Consult to Infectious Diseases [CONS] Routine Consulting Provider: [facility] [place] Reason for Consult: mrsa bacateremia Call Completed: Yes 10/16/18 08:20 Consult to Nurse Navigator [CONS] Routine Comment: copd - Constitutional Vitals: Temp Pulse Resp BP Pulse Ox 98.8 F 93 17 171/93 95 10/18/18 08:04 10/18/18 08:04 10/18/18 08:04 10/18/18 08:04 10/18/18 08:04 General appearance: Present: A&O X 3, answers questions appropriately Exam: Neurologically intact Lung -slight decreased breath sound at bases CVS-regular rate and rhythm Abdomen benign - Patient Status Disposition: Left Against Medical Advice - Discharge Instructions Follow Up With: Liza Solis CNP [Primary Care Provider] - 10/25/18 1:30 pm (Please take the new patient packet with you to your doctors office filled out/If you do not receive this packet in the mail please arrive 30 minutes early to fill out paper work. If your receive this packet in the mail show up 15 minutes early to your appointment. Please take with you to your appointment Picture ID, Insurance Cards, list of all medications including over the counter meds. This office does not give out controlled medication. If you are not able to make this follow up appointment please call [phone] 24 hours prior to your appointment.)
[2018-10-19 00:41] LABS: A.galactomannan Ag Index 0.04
== END 2018-10-18 11:10 | disposition left against medical advice (07) | DRG 139 ==
LOC: 2NNU 17:57 → SUATTDRO 17:57 → 2ANU 10-17 13:11
PROVIDERS: ADMIT Internal Medicine Nephrology; ATTEND Internal Medicine

== ENCOUNTER 2020-03-02 21:38 | Inpatient (IN) ==
[2020-03-03 01:20] LABS: Adenovirus Not Detected (Not Detect); Coronavirus 229E Not Detected (Not Detect); Coronavirus HKU1 Not Detected (Not Detect); Coronavirus NL63 Not Detected (Not Detect); Coronavirus OC43 Not Detected (Not Detect)
[2020-03-03 01:21] LABS: Bordetella Pertussis Not Detected (Not Detect); Chlamydophila pneumoniae Not Detected (Not Detect); Human Metapneumovirus Not Detected (Not Detect); Human Rhinovirus/Enterovirus Not Detected (Not Detect); Influenza A Subtype 2009 H1 Not Detected (Not Detect); Influenza B Not Detected (Not Detect); Mycoplasma pneumoniae Not Detected (Not Detect); Parainfluenza Virus 1 Not Detected (Not Detect); Parainfluenza Virus 2 Not Detected (Not Detect); Parainfluenza Virus 3 Not Detected (Not Detect); Parainfluenza Virus 4 Not Detected (Not Detect); Respiratory Syncytial Virus Not Detected (Not Detect)
[2020-03-03] MEDS ORDERED: Naloxone 0.4 MG/ML INJ IVP PRN (01:48)
[2020-03-03] MEDS: DilTIAZem 50 MG/50 ML IV.SOLN IVC SCH ×6 (02:01→22:08)
[2020-03-03] MEDS ORDERED: Dextrose Gel 15 GM/37.5 ML TUBE PO PRN ×2 (02:50)
[2020-03-03] MEDS ORDERED: *HR* Dextrose 50 % in Water (Vial) 50 ML VIAL IVP PRN (02:50)
[2020-03-03] MEDS ORDERED: Furosemide 20 MG/2 ML VIAL IVP ONE (02:50)
[2020-03-03] MEDS ORDERED: D5% in Water 1,000 ML IVC PRN (02:50)
[2020-03-03] MEDS ORDERED: Ipratropium/Albuterol Neb 3 ML IH PRN (03:21)
[2020-03-03] MEDS ORDERED: Perflutren Lipid Microsphere 1.3 ML in 0.9 % Sodium Chloride 8.7 ML IVP PRN (03:25)
[2020-03-03] MEDS ORDERED: Acetaminophen 325 MG TABLET PO PRN (04:39)
[2020-03-03] MEDS ORDERED: *HR* Promethazine 25 MG/ML VIAL IVP PRN (04:39)
[2020-03-03 04:46] LABS: Basophils % 0.3 %; Eosinophils # 0.1 K/mcL (0.0-0.6); Eosinophils % 1.2 %; Hemoglobin 13.3 g/dL (12.9-16.9); Immature Granulocytes % 0.4 % (0-4); Lymphocytes # 2.1 K/mcL (0.6-4.6); Lymphocytes % 19.1 %; Mean Corpuscular HGB Conc 30.2 g/dL (31.6-35.5); Mean Corpuscular Hemoglobin 28.6 pg (28.0-33.3); Mean Corpuscular Volume 94.6 fL (83.0-100.0); Mean Platelet Volume 10.6 fL (9.4-12.4); Monocytes % 9.5 %; Neutrophils # 7.6 K/mcL (1.6-8.9); Platelet Count 208 K/mcL (140-400); Red Blood Count 4.65 M/mcL (4.19-5.50); Red Cell Distribution Width 14.1 % (11.5-14.5); Segmented Neutrophils % 69.5 %; White Blood Count 10.9 K/mcL (4.3-11.1)
[2020-03-03 05:01] LABS: BUN/Creatinine Ratio 17 (6-26); Blood Urea Nitrogen 11 mg/dL (6-20); Calcium 8.9 mg/dL (8.6-10.3); Carbon Dioxide 28 mEq/L (23-29); Chloride 105 mEq/L (98-107); Glucose 192 mg/dL (70-105); Magnesium 1.8 mg/dL (1.6-2.6); Osmolality,Calculated 297 (280-300); Phosphorous 3.4 mg/dL (2.7-4.5); Potassium 4.1 mEq/L (3.5-5.1); Sodium 141 mEq/L (136-145); eGFR For African Americans > 60 (> 60); eGFR For Non-African Americans > 60 (> 60)
[2020-03-03 07:55] LABS: Estimated Average Glucose 194 mg/dl
[2020-03-03] MEDS: *HR* Enoxaparin 40 MG/0.4 ML SYRINGE SQ SCH (09:00)
[2020-03-03] MEDS: Insulin LISPRO 300 UNITS/3 ML VIAL SQ SCH ×4 (09:12→21:10)
[2020-03-03 09:38] LABS: Troponin I 0.04 ng/mL (< 0.04)
[2020-03-03 09:48] LABS: Thyroid Stimulating Hormone 1.178 mcIU/mL (0.340-5.600)
[2020-03-03] MEDS: Metoprolol XL (24 HR) Succ 50 MG TAB.ER.24H PO SCH (12:08)
[2020-03-04 01:05] LABS: BUN/Creatinine Ratio 18 (6-26); Blood Urea Nitrogen 13 mg/dL (6-20); Calcium 8.8 mg/dL (8.6-10.3); Carbon Dioxide 27 mEq/L (23-29); Chloride 106 mEq/L (98-107); Glucose 157 mg/dL (70-105); Osmolality,Calculated 293 (280-300); Potassium 4.4 mEq/L (3.5-5.1); Sodium 140 mEq/L (136-145); eGFR For African Americans > 60 (> 60); eGFR For Non-African Americans > 60 (> 60)
[2020-03-04] MEDS: DilTIAZem 50 MG/50 ML IV.SOLN IVC SCH ×2 (01:57→05:36)
[2020-03-04 02:34] LABS: Basophils % 0.3 %; Eosinophils # 0.1 K/mcL (0.0-0.6); Eosinophils % 1.2 %; Hematocrit 43.7 % (37.5-50.1); Hemoglobin 13.2 g/dL (12.9-16.9); Immature Granulocytes % 0.3 % (0-4); Lymphocytes # 2.1 K/mcL (0.6-4.6); Lymphocytes % 21.4 %; Mean Corpuscular HGB Conc 30.2 g/dL (31.6-35.5); Mean Corpuscular Hemoglobin 27.8 pg (28.0-33.3); Mean Corpuscular Volume 92.2 fL (83.0-100.0); Mean Platelet Volume 10.2 fL (9.4-12.4); Monocytes # 0.9 K/mcL (0.0-1.3); Monocytes % 9.4 %; Neutrophils # 6.7 K/mcL (1.6-8.9); Platelet Count 206 K/mcL (140-400); Red Blood Count 4.74 M/mcL (4.19-5.50); Red Cell Distribution Width 14.1 % (11.5-14.5); Segmented Neutrophils % 67.4 %; White Blood Count 9.9 K/mcL (4.3-11.1)
[2020-03-04] MEDS: *HR* Enoxaparin 40 MG/0.4 ML SYRINGE SQ SCH (05:33)
[2020-03-04] MEDS: Metoprolol XL (24 HR) Succ 50 MG TAB.ER.24H PO SCH (07:48)
[2020-03-04] MEDS: Insulin LISPRO 300 UNITS/3 ML VIAL SQ SCH ×4 (07:48→20:01)
[2020-03-04] MEDS ORDERED: *HR* Heparin 5,000 UNIT/ML VIAL IVP ONE (10:41)
[2020-03-04] MEDS ORDERED: *HR* Heparin 5,000 UNIT/ML VIAL IVP PRN ×2 (10:41)
[2020-03-04] MEDS ORDERED: Metoprolol XL (24 HR) Succ 50 MG TAB.ER.24H PO ONE (10:45)
[2020-03-04] MEDS ORDERED: Heparin 25,000UNIT/250ML 1/2NS 25,000 UNIT/250 ML IV.SOLN IVC SCH (10:45)
[2020-03-04 11:57] LABS: Hemoglobin 13.5 g/dL (12.9-16.9); Mean Corpuscular Hemoglobin 28.6 pg (28.0-33.3); Mean Corpuscular Volume 95.3 fL (83.0-100.0); Mean Platelet Volume 10.5 fL (9.4-12.4); Platelet Count 200 K/mcL (140-400); Red Blood Count 4.72 M/mcL (4.19-5.50); White Blood Count 11.1 K/mcL (4.3-11.1)
[2020-03-04 12:04] LABS: Heparin anti-factor XA UFH 0.2 IU/mL (0.30-0.70); INR 1.1
[2020-03-04] MEDS: Heparin 25,000UNIT/250ML 1/2NS 25,000 UNIT/250 ML IV.SOLN IVC SCH ×2 (12:30→21:07)
[2020-03-04] MEDS ORDERED: lisinopriL 5 MG TABLET PO SCH (12:45)
[2020-03-04] MEDS: Aspirin 81 MG TAB.CHEW PO SCH (14:29)
[2020-03-04] MEDS: lisinopriL 5 MG TABLET PO SCH (14:29)
[2020-03-04] MEDS: Furosemide 40 MG/4 ML VIAL IVP SCH (19:47)
[2020-03-05 05:06] LABS: BUN/Creatinine Ratio 20 (6-26); Blood Urea Nitrogen 16 mg/dL (6-20); Calcium 8.9 mg/dL (8.6-10.3); Carbon Dioxide 31 mEq/L (23-29); Chloride 102 mEq/L (98-107); Chol/HDL Ratio 4.3 (0-4.9); Cholesterol 138 mg/dL (< 200); Glucose 188 mg/dL (70-105); HDL Cholesterol 32 mg/dL (40-59); LDL Cholesterol,Calculated 92 mg/dL (< 100); Osmolality,Calculated 296 (280-300); Potassium 3.7 mEq/L (3.5-5.1); Sodium 140 mEq/L (136-145); Triglycerides 69 mg/dL (< 150); eGFR For African Americans > 60 (> 60); eGFR For Non-African Americans > 60 (> 60)
[2020-03-05] MEDS: Insulin LISPRO 300 UNITS/3 ML VIAL SQ SCH ×4 (07:54→20:22)
[2020-03-05] MEDS: carvediloL 6.25 MG TABLET PO SCH ×2 (07:55→20:47)
[2020-03-05] MEDS: Furosemide 40 MG/4 ML VIAL IVP SCH ×2 (07:55→20:47)
[2020-03-05] MEDS: lisinopriL 5 MG TABLET PO SCH (07:55)
[2020-03-05] MEDS: Aspirin 81 MG TAB.CHEW PO SCH (07:55)
[2020-03-05] MEDS: Heparin 25,000UNIT/250ML 1/2NS 25,000 UNIT/250 ML IV.SOLN IVC SCH (08:08)
[2020-03-05] MEDS ORDERED: Metoprolol XL (24 HR) Succ 50 MG TAB.ER.24H PO SCH ×2 (09:00)
[2020-03-05] MEDS ORDERED: Aspirin 81 MG TAB.CHEW PO SCH (09:00)
[2020-03-06] MEDS: Heparin 25,000UNIT/250ML 1/2NS 25,000 UNIT/250 ML IV.SOLN IVC SCH ×2 (02:34→13:57)
[2020-03-06] MEDS ORDERED: *HR* Metoprolol 5 MG/5 ML VIAL IVP ONE ×2 (04:00→19:06)
[2020-03-06] MEDS: carvediloL 6.25 MG TABLET PO SCH ×2 (07:57→16:09)
[2020-03-06] MEDS: Aspirin 81 MG TAB.CHEW PO SCH (07:57)
[2020-03-06] MEDS: lisinopriL 5 MG TABLET PO SCH (07:58)
[2020-03-06] MEDS: Furosemide 40 MG/4 ML VIAL IVP SCH ×2 (08:06→19:48)
[2020-03-06] MEDS: Insulin LISPRO 300 UNITS/3 ML VIAL SQ SCH ×4 (08:06→19:49)
[2020-03-06 10:09] LABS: BUN/Creatinine Ratio 19 (6-26); Blood Urea Nitrogen 15 mg/dL (6-20); Calcium 8.8 mg/dL (8.6-10.3); Carbon Dioxide 33 mEq/L (23-29); Chloride 100 mEq/L (98-107); Glucose 201 mg/dL (70-105); Osmolality,Calculated 297 (280-300); Potassium 3.5 mEq/L (3.5-5.1); Sodium 140 mEq/L (136-145); eGFR For African Americans > 60 (> 60); eGFR For Non-African Americans > 60 (> 60)
[2020-03-07] MEDS: Heparin 25,000UNIT/250ML 1/2NS 25,000 UNIT/250 ML IV.SOLN IVC SCH (01:27)
[2020-03-07 04:02] LABS: BUN/Creatinine Ratio 19 (6-26); Blood Urea Nitrogen 14 mg/dL (6-20); Calcium 8.9 mg/dL (8.6-10.3); Carbon Dioxide 35 mEq/L (23-29); Chloride 100 mEq/L (98-107); Glucose 181 mg/dL (70-105); Osmolality,Calculated 295 (280-300); Potassium 3.3 mEq/L (3.5-5.1); Sodium 140 mEq/L (136-145); eGFR For African Americans > 60 (> 60); eGFR For Non-African Americans > 60 (> 60)
[2020-03-07 07:39] VITALS: BP 155/110
[2020-03-07] MEDS: Furosemide 40 MG/4 ML VIAL IVP SCH (07:39)
[2020-03-07] MEDS: lisinopriL 5 MG TABLET PO SCH (07:39)
[2020-03-07] MEDS: Aspirin 81 MG TAB.CHEW PO SCH (07:39)
[2020-03-07] MEDS: Insulin LISPRO 300 UNITS/3 ML VIAL SQ SCH (07:40)
[2020-03-07] MEDS ORDERED: carvediloL 6.25 MG TABLET PO SCH (08:00)
[2020-03-07] MEDS ORDERED: Potassium Chloride Elixir 20 MEQ/15 ML UDC PO ONE (08:59)
== END 2020-03-07 11:15 | disposition left against medical advice (07) | DRG 194 ==
LOC: CDU → SUATTDRO 03-03 00:08 → 2NNU 03-03 01:25 → SUATTDRO 03-04 17:42
PROVIDERS: ADMIT Student in an Organized Health Care Education/Training Program; ATTEND Internal Medicine